=== PATIENT | male | born 1975 | race Two or more races ===

== ENCOUNTER 2019-10-19 13:27 | Emergency (ER) | payer SELFPAY ==
[~2019-10-19] VITALS: Ht 170.2 cm; Wt 72.6 kg
--- NOTE | 2019-10-19 14:18 | NUR ---
PT BIBSELF C/O RLQ on and off x 4 days 03/18 ps. Placed on monitor and pulse ox. awaiting MD for eval. No acute distress noted. Will continue to monitor.
--- NOTE | 2019-10-19 14:38 | NUR ---
urine collected and sent to lab
[2019-10-19 14:53] LABS: BASOPHILS # (AUTO) 0.1 /CMM (0.0-0.2); BASOPHILS % (AUTO) 1.1 % (0.0-2.0); EOSINOPHILS % (AUTO) 2.1 % (0.0-6.0); HEMATOCRIT 46 % (39-51); HEMOGLOBIN 15.2 g/dL (13.5-17.5); LYMPHOCYTES # (AUTO) 2.2 /CMM (0.8-4.8); LYMPHOCYTES % (AUTO) 19.4 % (20.0-44.0); MEAN CORPUSCULAR HGB CONC 33 g/dl (31.0-36.0); MEAN CORPUSCULAR VOLUME 80 fL (80-96); MONOCYTES % (AUTO) 8.5 % (2.0-12.0); NEUTROPHILS # (AUTO) 7.9 /CMM (1.8-8.9); NEUTROPHILS % (AUTO) 68.9 % (43.0-81.0); PLATELET COUNT (AUTO) 334 /CMM (150-450); RED BLOOD CELL COUNT(AUTO) 5.67 MIL/uL (4.5-6.0); WHITE BLOOD COUNT (AUTO) 11.4 K/uL (4.3-11.0)
--- NOTE | 2019-10-19 14:54 | NUR ---
BRIOUGHT TO CT
[2019-10-19 14:59] LABS: APPEARANCE,URINE CLEAR (CLEAR); BILIRUBIN,URINE SMALL (NEGATIVE); BLOOD, URINE NEGATIVE Ery/uL (NEGATIVE); COLOR,URINE AMBER (YELLOW); KETONES,URINE NEGATIVE (NEGATIVE); LEUKOCYTE ESTERASE ,URINE NEGATIVE (NEGATIVE); NITRITE, URINE NEGATIVE (NEGATIVE); PROTEIN,URINE NEGATIVE (NEGATIVE); UGLUCOSE NEGATIVE (NEGATIVE)
--- NOTE | 2019-10-19 15:01 | NUR ---
BACK FROM CT
[2019-10-19 15:32] LABS: ALBUMIN 3.7 g/dL (3.4-5.0); BILIRUBIN,DIRECT 0.1 mg/dL (0.0-0.2); BILIRUBIN,TOTAL 0.6 mg/dL (0.2-1.0); CALCIUM, SERUM 9.6 mg/dL (8.5-10.1); CREATININE 1.2 mg/dL (0.6-1.3); TOTAL PROTEIN, SERUM 8.7 g/dL (6.4-8.2)
[2019-10-19 15:41] LABS: BACTERIA,URINE Rare /HPF (None Seen); RBC,URINE 0-2 /HPF (0-2); SQUAMOUS EPITHELIAL CELL,UR Few /HPF (None Seen); WBC,URINE 0-2 /HPF (0-3)
[2019-10-19] MEDS ORDERED: CIPROFLOXACIN HCL 500 MG TABLET ONE (15:49)
[2019-10-19] MEDS ORDERED: METRONIDAZOLE 500 MG TABLET ONE (15:49)
[2019-10-19] MEDS ORDERED: METRONIDAZOLE 500 MG TABLET PO ONE (16:00)
[2019-10-19] MEDS ORDERED: CIPROFLOXACIN HCL 250 MG TABLET PO ONE (16:00)
[2019-10-19 16:06] VITALS: BP 128/82
== END 2019-10-19 16:09 | disposition home or self-care (01) ==
LOC: ER 13:36
DX: K57.32 Diverticulitis of large intestine without perforation or abscess without bleeding (principal)
CPT/HCPCS: 36415; 80048-TC; 80076-TC; 81000-TC; 83690-TC; 85025-TC

== ENCOUNTER 2023-10-27 21:20 | Inpatient (IN) | payer OTHER ==
[~2023-10-27] VITALS: Ht 170.2 cm; Wt 76.7 kg
[2023-10-27] MEDS ORDERED: CT SWABBABLE VALVE TRANS SET 1 EA INFUS.SET MC ONE (22:20)
[2023-10-27] MEDS ORDERED: IOHEXOL-300 100 ML VIAL IV ONE (22:20)
[2023-10-27] MEDS ORDERED: IV NS 0.9% 250 ML IV ONE (22:20)
[2023-10-27] MEDS ORDERED: CEFTRIAXONE 1GM BAG (ER ONLY) 50 ML IV ONE (22:33)
[2023-10-27] MEDS ORDERED: ONDANSETRON HCL/PF 4 MG/2 ML VIAL ONE (22:34)
[2023-10-27] MEDS ORDERED: MORPHINE SULFATE INJ 4 MG/ML DISP.SYRIN ONE (22:34)
[2023-10-27] MEDS: MORPHINE SULFATE INJ 2 MG/ML DISP.SYRIN IV ONE (22:48)
[2023-10-27] MEDS: ONDANSETRON HCL/PF - ER 4 MG/2 ML VIAL IV ONE (22:48)
[2023-10-27] MEDS: CEFTRIAXONE 1 G in IV D5W 50 ML IV ONE (22:48)
[2023-10-27 22:55] LABS: BASOPHILS # (AUTO) 0.1 K/uL (0.0-0.2); BASOPHILS % (AUTO) 0.5 % (0.0-2.0); EOSINOPHILS # (AUTO) 0.1 K/uL (0.0-0.7); EOSINOPHILS % (AUTO) 0.8 % (0.0-6.0); HEMATOCRIT 45 % (39-51); HEMOGLOBIN 14.9 g/dL (13.5-17.5); LYMPHOCYTES # (AUTO) 2.1 K/uL (0.8-4.8); LYMPHOCYTES % (AUTO) 12.1 % (20.0-44.0); MEAN CORPUSCULAR HEMOGLOBIN 26 PG (26.0-33.0); MEAN CORPUSCULAR HGB CONC 33 g/dl (31.0-36.0); MEAN CORPUSCULAR VOLUME 79 fL (80-96); MONOCYTES # (AUTO) 1.2 K/uL (0.1-1.30); MONOCYTES % (AUTO) 6.9 % (2.0-12.0); NEUTROPHILS # (AUTO) 13.7 K/uL (1.8-8.9); NEUTROPHILS % (AUTO) 79.7 % (43.0-81.0); PLATELET COUNT (AUTO) 362 K/uL (150-450); RED BLOOD CELL COUNT(AUTO) 5.67 MIL/uL (4.5-6.0); RED CELL DISTRIBUTION WIDTH 13.1 % (11.5-15.0); WHITE BLOOD COUNT (AUTO) 17.2 K/uL (4.3-11.0)
[2023-10-27 23:01] LABS: LACTIC ACID 0.7 mmol/L (0.4-2.0)
[2023-10-27 23:12] LABS: ALBUMIN 3.7 g/dL (3.4-5.0); BILIRUBIN,TOTAL 0.6 mg/dL (0.2-1.0); CALCIUM, SERUM 9.5 mg/dL (8.5-10.1); TOTAL PROTEIN, SERUM 8.5 g/dL (6.4-8.2)
[2023-10-28] MEDS ORDERED: ONDANSETRON HCL/PF 4 MG/2 ML VIAL IVP PRN (01:30)
[2023-10-28 02:00] VITALS: BP 147/90; TEMP 98.4; O2SAT 96
[2023-10-28] MEDS: IV NS 0.9% 1,000 ML IV SCH (03:12)
[2023-10-28] MEDS: ENOXAPARIN SODIUM 40 MG/0.4 ML DISP.SYRIN SQ SCH (03:16)
[2023-10-28] MEDS ORDERED: CEFEPIME 1 GM VIAL ONE ×2 (03:16→03:17)
[2023-10-28] MEDS: CEFEPIME HCL 2 GM in IV D5W 100 ML IV ONE (03:41)
[2023-10-28] MEDS: MORPHINE SULFATE INJ 2 MG/ML DISP.SYRIN IV PRN (03:42)
[2023-10-28] MEDS ORDERED: VANCOMYCIN 1 GM /D5W 250 ML PB IV ONE ×2 (04:23→04:33)
[2023-10-28] MEDS: VANCOMYCIN HCL IV SCH (04:41)
[2023-10-28] MEDS: D5W IV SCH (04:41)
[2023-10-28 08:23] VITALS: BP 129/78; TEMP 99.1; O2SAT 95
[2023-10-28] MEDS: ACETAMINOPHEN 325 MG TABLET PO PRN (14:28)
[2023-10-28] MEDS: CEFEPIME HCL 2 GM in IV D5W 100 ML IV SCH (15:46)
[2023-10-28 16:00] VITALS: BP 131/79; TEMP 98.6; O2SAT 98
[2023-10-28] MEDS: VANCOMYCIN 1 GM in IV D5W 250ml IV SCH (17:06)
[2023-10-28 20:00] VITALS: BP 126/79; TEMP 98.5; O2SAT 96
[2023-10-29] MEDS: IV NS 0.9% 1,000 ML IV PRN (03:07)
[2023-10-29 06:33] LABS: BASOPHILS # (AUTO) 0.1 K/uL (0.0-0.2); BASOPHILS % (AUTO) 0.7 % (0.0-2.0); EOSINOPHILS # (AUTO) 0.4 K/uL (0.0-0.7); EOSINOPHILS % (AUTO) 3.4 % (0.0-6.0); HEMATOCRIT 42 % (39-51); HEMOGLOBIN 13.5 g/dL (13.5-17.5); LYMPHOCYTES # (AUTO) 2.7 K/uL (0.8-4.8); LYMPHOCYTES % (AUTO) 22.3 % (20.0-44.0); MEAN CORPUSCULAR HEMOGLOBIN 26 PG (26.0-33.0); MEAN CORPUSCULAR HGB CONC 33 g/dl (31.0-36.0); MEAN CORPUSCULAR VOLUME 80 fL (80-96); MONOCYTES % (AUTO) 8.1 % (2.0-12.0); NEUTROPHILS # (AUTO) 7.8 K/uL (1.8-8.9); NEUTROPHILS % (AUTO) 65.5 % (43.0-81.0); PLATELET COUNT (AUTO) 327 K/uL (150-450); RED BLOOD CELL COUNT(AUTO) 5.19 MIL/uL (4.5-6.0); RED CELL DISTRIBUTION WIDTH 13.2 % (11.5-15.0); WHITE BLOOD COUNT (AUTO) 11.9 K/uL (4.3-11.0)
[2023-10-29 06:45] LABS: INR 1.05 (0.91-1.10); PARTIAL THROMBOPLASTIN TIME 38.4 SEC (24.3-34.3); PROTHROMBIN TIME 11.1 SECS (9.2-11.1)
[2023-10-29] MEDS ORDERED: BUPIVACAINE 0.5 % PF 150 MG/30 ML VIAL ONE (07:22)
[2023-10-29] MEDS ORDERED: LIDOCAINE 1%-EPI 1:100,000 20 ML VIAL ONE (07:22)
[2023-10-29] MEDS ORDERED: ANESTHESIA TRAY IN PYXIS 1 EA TRAY MC ONE (07:22)
[2023-10-29] MEDS ORDERED: FENTANYL PF 250MCG/5ML AMPUL ONE (07:29)
[2023-10-29] MEDS ORDERED: ROCURONIUM BROMIDE 50 MG/5 ML ONE ×2 (07:30→07:31)
[2023-10-29] MEDS ORDERED: CELLULOSE,OXIDIZED 1 PKT EACH MC ONE (08:14)
[2023-10-29] MEDS ORDERED: FENTANYL PF 100MCG/2ML AMPUL ONE (08:43)
[2023-10-29] MEDS ORDERED: KETOROLAC TROMETHAMINE INJ 30 MG/ML VIAL ONE (08:47)
[2023-10-29 08:55] LABS: BILIRUBIN,TOTAL 0.7 mg/dL (0.2-1.0); CALCIUM, SERUM 9.1 mg/dL (8.5-10.1); MAGNESIUM 2.2 mg/dL (1.8-2.4); PHOSPHORUS 3.5 mg/dL (2.5-4.9); POTASSIUM 3.9 mmol/L (3.5-5.1); TOTAL PROTEIN, SERUM 7.6 g/dL (6.4-8.2)
[2023-10-29 09:45] VITALS: BP 130/82; TEMP 97; O2SAT 95
[2023-10-29] MEDS: ACETAMINOPHEN 325 MG TABLET PO SCH (10:57)
[2023-10-29] MEDS: GABAPENTIN 100 MG CAPSULE PO SCH (10:57)
[2023-10-29] MEDS: CELECOXIB 100 MG CAPSULE PO SCH (10:57)
[2023-10-29 16:00] VITALS: BP 112/73; TEMP 98.4; O2SAT 97
== END 2023-10-29 18:58 | disposition home or self-care (01) | DRG 348 ==
LOC: ER 21:22 → MED 10-28 01:42
PROVIDERS: ADMIT Nurse Practitioner Acute Care; ATTEND Internal Medicine
PROC: 0D9Q0ZZ Drainage of Anus, Open Approach (ICD-10-PCS; principal; 2023-10-29)
DX: K61.0 Anal abscess (principal); E87.1 Hypo-osmolality and hyponatremia; D72.829 Elevated white blood cell count, unspecified; K64.9 Unspecified hemorrhoids
CPT/HCPCS: 36415; 72193-TC; 80053-TC; 83605-TC; 83735-TC; 84100-TC; 85025-TC; 85610-TC; 85730-TC; 87040-TC; A4223; A6253; A6403; G0378; J0692; J0696; J1650; J1885; J2270; J2405; J2704; J3010; J3370; J3490; J7030; J7050; J7060; J7120; Q9967